=== PATIENT | female | born 1965 ===

== ENCOUNTER 2023-05-16 06:32 | Day surgery (SDC) | payer OTHER ==
[~2023-05-16] VITALS: Ht 165.1 cm; Wt 73.9 kg
[~2023-05-16 06:32] MED LIST: LOSARTAN POTASS50 MG PO; METFORMIN HCL1000 M2 PO
[2023-05-16] MEDS ORDERED: CEFAZOLIN SODIUM 1,000 MG VIAL ONE (09:16)
[2023-05-16] MEDS ORDERED: LIDOCAINE HCL 1%/Epi 20ML VIAL IJ ONE (12:57)
[2023-05-16] MEDS ORDERED: BUPIVACAINE HCL/PF 0.5% 30ML ML ONE (12:57)
[2023-05-16] MEDS ORDERED: CEFAZOLIN SODIUM 1,000 MG VIAL IV ONE (13:00)
[2023-05-16] MEDS ORDERED: BUPIVACAINE HCL/PF 0.5% 30ML ML IJ ONE (13:00)
[2023-05-16] MEDS ORDERED: NEURONTIN300 MG PO (14:41)
[2023-05-16] MEDS ORDERED: TRAM1TAB98 PO (14:41)
== END 2023-05-16 17:00 | disposition home or self-care (01) ==
LOC: CIR.AMB 06:32
PROVIDERS: ATTEND Surgery
DX: D21.6 Benign neoplasm of connective and other soft tissue of trunk, unspecified (principal); R22.2 Localized swelling, mass and lump, trunk; Z20.822 Contact with and (suspected) exposure to COVID-19; E11.9 Type 2 diabetes mellitus without complications; I10 Essential (primary) hypertension